=== PATIENT | male | born 1935 | race Caucasian/White ===

== ENCOUNTER 2016-05-25 07:33 | Outpatient (CLI) | payer MEDICARE ==
[2016-05-25 09:28] LABS: #Eosinphils 0.2 thou/uL (0.0-0.7); #Lymphocytes 1.2 thou/uL (1.20-3.40); #Monocytes 0.7 thou/uL (0.11-0.59); #Neutrophils 3.8 thou/uL (1.40-6.50); %Basophils 0.6 % (0.0-1.0); %Eosinophils 4.1 % (0.0-10.0); %Lymphocytes 20.5 % (21.0-51.0); %Monocytes 11.3 % (0.0-10.0); Hematocrit 39.6 % (42.0-52.0); Red Blood Cell (RBC) Count 4.17 mill/uL (4.70-6.10); White Blood Cell (WBC) Count 5.9 thou/uL (4.8-10.8)
[2016-05-25 09:42] LABS: ALT (SGPT) 17 U/L (0-55); AST (SGOT) 19 U/L (5-34); Alkaline Phosphatase 98 U/L (40-150); Anion Gap 14 mmol/L (10-20); BUN (Urea Nitrogen) 22 mg/dL (8.4-25.7); Bilirubin, Total 0.6 mg/dL (0.2-1.2); Calc. Creatinine Clearance 0 mL/min (70-130); Calcium 8.9 mg/dL (7.8-10.44); Carbon Dioxide 27 mmol/L (23-31); Chloride 108 mmol/L (98-107); Estimated GFR-MDRD 61; Globulin 2.6 g/dL (2.4-3.5); LDL Cholesterol, Calculated 115 mg/dL; Protein, Total 6.1 g/dL (5.8-8.1)
[2016-05-25 09:44] LABS: Hemoglobin A1c 5.4 % (4.0-6.0)
== END 2016-05-25 07:34 | disposition home or self-care (01) ==
LOC: NAV LABSP 07:33
PROVIDERS: ATTEND Family Medicine
DX: E11.9 Type 2 diabetes mellitus without complications (principal); M62.59 Muscle wasting and atrophy, not elsewhere classified, multiple sites
CPT/HCPCS: 36415; 80053; 80061; 83036; 85025

== ENCOUNTER 2016-06-21 08:19 | Outpatient (CLI) | payer MEDICARE | END 2016-06-21 08:20 | disposition home or self-care (01) | LOC: NAV LABSP 08:19 | PROVIDERS: ATTEND Family Medicine | DX: E11.9 Type 2 diabetes mellitus without complications (principal); I10 Essential (primary) hypertension | CPT/HCPCS: 36415; 82248; 84443 ==

== ENCOUNTER 2016-07-13 08:14 | Outpatient (CLI) | payer MEDICARE, OTHER ==
[2016-07-13 12:01] LABS: Bilirubin Negative (Negative); Blood, Urine Negative (Negative); Clarity Clear (Clear); Glucose, Urine (Dipstick) Negative (Negative); Leukocyte Negative (Negative); Nitrite Negative (Negative); Protein, Urine (Dipstick) Negative (Neg-Trace); Specific Gravity, Urine 1.015 (1.005-1.030); Urobilinogen 0.2 mg/dL (0.2-1.0); pH, Urine 6.5 (5.0-9.0)
== END 2016-07-13 08:15 | disposition home or self-care (01) ==
LOC: NAV LABSP 08:14
PROVIDERS: ATTEND Family Medicine
DX: Z12.5 Encounter for screening for malignant neoplasm of prostate (principal); R39.198 Other difficulties with micturition
CPT/HCPCS: 36415; 81003; 87086; G0103

== ENCOUNTER 2016-08-25 16:13 | Outpatient (CLI) | payer MEDICARE, MEDICAID ==
[2016-08-25 17:57] LABS: ALT (SGPT) 6 U/L (8-55); AST (SGOT) 24 U/L (5-34); Albumin 3.5 g/dL (3.4-4.8); Alkaline Phosphatase 106 U/L (40-150); Anion Gap 16 mmol/L (10-20); BUN (Urea Nitrogen) 29 mg/dL (8.4-25.7); Bilirubin, Total 0.7 mg/dL (0.2-1.2); Calc. Creatinine Clearance 0 mL/min (70-130); Calcium 8.5 mg/dL (7.8-10.44); Carbon Dioxide 22 mmol/L (23-31); Chloride 110 mmol/L (98-107); Estimated GFR-MDRD 65; Globulin 2.7 g/dL (2.4-3.5); Glucose 89 mg/dL (83-110); Potassium 3.8 mmol/L (3.5-5.1); Protein, Total 6.2 g/dL (5.8-8.1); Sodium 144 mmol/L (136-145)
[2016-08-25 17:58] LABS: Hemoglobin 12.7 g/dL (14.0-18.0); Mean Corpuscular HGB CONC 32.5 g/dL (32.0-36.0); Mean Corpuscular Hemoglobin 30.7 pg (27.0-31.0); Mean Corpuscular Volume 94.2 fl (80.0-94.0); Mean Platelet Volume 7.9 fL (7.4-10.4); Platelet Count 153 thou/uL (130-400); RBC Distribution Width 11.9 % (11.5-14.5); Red Blood Cell (RBC) Count 4.16 mill/uL (4.70-6.10); White Blood Cell (WBC) Count 7.7 thou/uL (4.8-10.8)
[2016-08-25 18:10] LABS: Band 1 % (5-11); Eosinophils 1 % (0-10); Lymphocytes 25 % (21-51); MDiff Complete? YES; Monocytes 3 % (0-10); Neutrophil 70 % (42-75); PLT Morphology Comment Appears Adequate; RBC Morphology Normal
[2016-08-25 18:47] LABS: Bilirubin Negative (Negative); Blood, Urine Negative (Negative); Clarity Clear (Clear); Glucose, Urine (Dipstick) Negative (Negative); Leukocyte Negative (Negative); Nitrite Negative (Negative); Protein, Urine (Dipstick) Negative (Neg-Trace); Specific Gravity, Urine 1.025 (1.005-1.030); Urobilinogen 0.2 mg/dL (0.2-1.0); pH, Urine 5.5 (5.0-9.0)
[2016-08-25 18:59] LABS: Bacteria/HPF None Seen HPF (None Seen); RBC/HPF None Seen HPF (0-3); Squamous Epithelial None Seen HPF (0-3); WBC/HPF None Seen HPF (0-3)
== END 2016-08-25 16:14 | disposition home or self-care (01) ==
LOC: NAV LABSP 16:13
PROVIDERS: ATTEND Family Medicine
DX: M62.81 Muscle weakness (generalized) (principal)
CPT/HCPCS: 36415; 80053; 81001; 85025; 87086

== ENCOUNTER 2016-09-05 08:25 | Outpatient (CLI) | payer MEDICARE, OTHER ==
[2016-09-05 09:27] LABS: ALT (SGPT) 23 U/L (8-55); AST (SGOT) 41 U/L (5-34); Albumin 2.9 g/dL (3.4-4.8); Alkaline Phosphatase 173 U/L (40-150); Anion Gap 15 mmol/L (10-20); BUN (Urea Nitrogen) 18 mg/dL (8.4-25.7); Bilirubin, Direct 0.2 mg/dL (0.1-0.3); Bilirubin, Total 0.4 mg/dL (0.2-1.2); Calc. Creatinine Clearance 0 mL/min (70-130); Calcium 8.3 mg/dL (7.8-10.44); Carbon Dioxide 25 mmol/L (23-31); Cardiac Risk 8.6 (Less than 4.5); Chloride 107 mmol/L (98-107); Cholesterol 155 mg/dl (< 200 Desired); Estimated GFR-MDRD 86; Globulin 2.8 g/dL (2.4-3.5); Glucose 89 mg/dL (83-110); HDL Cholesterol 18 mg/dL (>60 Neg Risk); LDL Cholesterol, Calculated 107 mg/dL; Protein, Total 5.7 g/dL (5.8-8.1); Sodium 143 mmol/L (136-145); Triglycerides 152 mg/dL (Less than 150)
[2016-09-05 09:33] LABS: #Basophils 0.1 thou/uL (0.0-0.2); #Eosinphils 0.4 thou/uL (0.0-0.7); #Lymphocytes 1.9 thou/uL (1.20-3.40); #Monocytes 1.2 thou/uL (0.11-0.59); #Neutrophils 6.2 thou/uL (1.40-6.50); %Basophils 0.7 % (0.0-1.0); %Eosinophils 4.1 % (0.0-10.0); %Lymphocytes 19.6 % (21.0-51.0); %Monocytes 11.9 % (0.0-10.0); %Neutrophils 63.8 % (42.0-75.0); Hemoglobin 12.1 g/dL (14.0-18.0); Mean Corpuscular HGB CONC 31.2 g/dL (32.0-36.0); Mean Corpuscular Hemoglobin 29.5 pg (27.0-31.0); Mean Corpuscular Volume 94.6 fl (80.0-94.0); Mean Platelet Volume 6.7 fL (7.4-10.4); Platelet Count 228 thou/uL (130-400); RBC Distribution Width 11.8 % (11.5-14.5); White Blood Cell (WBC) Count 9.7 thou/uL (4.8-10.8)
[2016-09-05 09:49] LABS: Hemoglobin A1c 5.2 % (4.0-6.0)
== END 2016-09-05 08:26 | disposition home or self-care (01) ==
LOC: NAV LABSP 08:25
PROVIDERS: ATTEND Family Medicine
DX: E11.9 Type 2 diabetes mellitus without complications (principal); I10 Essential (primary) hypertension
CPT/HCPCS: 36415; 80053; 80061; 82248; 83036; 84443; 85025

== ENCOUNTER 2016-10-26 07:42 | Outpatient (CLI) | payer MEDICARE, MEDICAID ==
[2016-10-26 08:46] LABS: #Eosinphils 0.3 thou/uL (0.0-0.7); #Lymphocytes 1.6 thou/uL (1.20-3.40); #Monocytes 0.7 thou/uL (0.11-0.59); #Neutrophils 3.6 thou/uL (1.40-6.50); %Basophils 0.5 % (0.0-1.0); %Eosinophils 4.4 % (0.0-10.0); %Lymphocytes 26.1 % (21.0-51.0); %Monocytes 10.6 % (0.0-10.0); %Neutrophils 58.3 % (42.0-75.0); Hemoglobin 11.8 g/dL (14.0-18.0); Mean Corpuscular HGB CONC 32.4 g/dL (32.0-36.0); Mean Corpuscular Hemoglobin 30.3 pg (27.0-31.0); Mean Corpuscular Volume 93.5 fl (80.0-94.0); Mean Platelet Volume 7.5 fL (7.4-10.4); Platelet Count 161 thou/uL (130-400); RBC Distribution Width 12.1 % (11.5-14.5); Red Blood Cell (RBC) Count 3.89 mill/uL (4.70-6.10); White Blood Cell (WBC) Count 6.2 thou/uL (4.8-10.8)
== END 2016-10-26 07:43 | disposition home or self-care (01) ==
LOC: NAV LABSP 07:42
PROVIDERS: ATTEND Family Medicine
DX: M25.561 Pain in right knee (principal); R60.9 Edema, unspecified
CPT/HCPCS: 36415; 85025

== ENCOUNTER 2016-11-11 07:18 | Outpatient (CLI) | payer MEDICARE, MEDICAID ==
[2016-11-11 07:35] LABS: Bilirubin Negative (Negative); Blood, Urine Small (Negative); Clarity Slightly Cloudy (Clear); Glucose, Urine (Dipstick) Negative (Negative); Leukocyte Large (Negative); Nitrite Positive (Negative); Protein, Urine (Dipstick) 100 mg/dL (Neg-Trace)
[2016-11-11 07:40] LABS: pH, Urine Greater/Equal 9.0 (5.0-9.0)
[2016-11-11 07:41] LABS: Bacteria/HPF 4+ HPF (None Seen); Crystals/HPF 3+ TRIPLE PHOS HPF (Negative); Squamous Epithelial 0-3 HPF (0-3); WBC/HPF 21-50 HPF (0-3)
== END 2016-11-11 07:19 | disposition home or self-care (01) ==
LOC: NAV LABSP 07:18
PROVIDERS: ATTEND Family Medicine
DX: R41.82 Altered mental status, unspecified (principal)
CPT/HCPCS: 81003; 81015; 87077; 87086; 87186

== ENCOUNTER 2016-12-13 10:11 | Outpatient (CLI) | payer MEDICARE, OTHER ==
[2016-12-13 11:54] LABS: #Eosinphils 0.4 thou/uL (0.0-0.7); #Lymphocytes 1.5 thou/uL (1.20-3.40); #Monocytes 0.8 thou/uL (0.11-0.59); #Neutrophils 4.8 thou/uL (1.40-6.50); %Basophils 0.6 % (0.0-1.0); %Eosinophils 5.3 % (0.0-10.0); %Lymphocytes 20.3 % (21.0-51.0); %Monocytes 10.3 % (0.0-10.0); %Neutrophils 63.6 % (42.0-75.0); Mean Corpuscular HGB CONC 32.5 g/dL (32.0-36.0); Mean Corpuscular Hemoglobin 30.2 pg (27.0-31.0); Mean Corpuscular Volume 92.9 fl (80.0-94.0); Platelet Count 162 thou/uL (130-400); RBC Distribution Width 12.1 % (11.5-14.5); Red Blood Cell (RBC) Count 3.97 mill/uL (4.70-6.10); White Blood Cell (WBC) Count 7.5 thou/uL (4.8-10.8)
[2016-12-13 12:06] LABS: ALT (SGPT) 12 U/L (8-55); AST (SGOT) 13 U/L (5-34); Albumin 3.1 g/dL (3.4-4.8); Alkaline Phosphatase 92 U/L (40-150); Anion Gap 11 mmol/L (10-20); BUN (Urea Nitrogen) 26 mg/dL (8.4-25.7); Bilirubin, Direct 0.2 mg/dL (0.1-0.3); Bilirubin, Total 0.4 mg/dL (0.2-1.2); Calc. Creatinine Clearance 0 mL/min (70-130); Calcium 8.2 mg/dL (7.8-10.44); Carbon Dioxide 24 mmol/L (23-31); Cardiac Risk 6.6 (Less than 4.5); Chloride 112 mmol/L (98-107); Cholesterol 138 mg/dl (< 200 Desired); Estimated GFR-MDRD 77; Globulin 2.3 g/dL (2.4-3.5); Glucose 87 mg/dL (83-110); HDL Cholesterol 21 mg/dL (>60 Neg Risk); LDL Cholesterol, Calculated 101 mg/dL; Protein, Total 5.4 g/dL (5.8-8.1); Sodium 143 mmol/L (136-145); Triglycerides 78 mg/dL (Less than 150)
[2016-12-13 12:35] LABS: Hemoglobin A1c 5.5 % (4.0-6.0)
== END 2016-12-13 10:12 | disposition home or self-care (01) ==
LOC: NAV LABSP 10:11
PROVIDERS: ATTEND Family Medicine
DX: E11.9 Type 2 diabetes mellitus without complications (principal); I10 Essential (primary) hypertension
CPT/HCPCS: 36415; 80053; 80061; 82248; 83036; 84443; 85025

== ENCOUNTER 2017-02-21 13:43 | Emergency (ER) | payer MEDICARE, OTHER ==
[~2017-02-21 13:43] MED LIST: EPINEPHrine 1 MG/ML AMP ONE
[2017-02-21] MEDS ORDERED: Norepinephrine 8 MG/0.9% NS 250 ML ONE (14:05)
[2017-02-21 14:10] LABS: INR-International Normal Ratio 1.2
[2017-02-21 14:10] LABS: Hemoglobin 15.8 g/dL (14.0-18.0); Mean Corpuscular HGB CONC 30.8 g/dL (32.0-36.0); Mean Corpuscular Hemoglobin 30.9 pg (27.0-31.0); Mean Platelet Volume 8.5 fL (7.4-10.4); Platelet Count 142 thou/uL (130-400); RBC Distribution Width 13.1 % (11.5-14.5); Red Blood Cell (RBC) Count 5.13 mill/uL (4.70-6.10); White Blood Cell (WBC) Count 21.4 thou/uL (4.8-10.8)
[2017-02-21 14:11] LABS: PTT 39.8 SEC (22.9-36.1)
[2017-02-21 14:15] LABS: CKMB 4.1 ng/mL (0-6.6); Troponin I 0.085 ng/mL (< 0.028)
[2017-02-21 14:16] LABS: ALT (SGPT) 9 U/L (8-55); AST (SGOT) 48 U/L (5-34); Alkaline Phosphatase 110 U/L (40-150); Anion Gap 24 mmol/L (10-20); BUN (Urea Nitrogen) 43 mg/dL (8.4-25.7); Bilirubin, Total 0.5 mg/dL (0.2-1.2); Calc. Creatinine Clearance 0 mL/min (70-130); Calcium 9.4 mg/dL (7.8-10.44); Carbon Dioxide 14 mmol/L (23-31); Chloride 108 mmol/L (98-107); Estimated GFR-MDRD 15; Globulin 3.9 g/dL (2.4-3.5); Glucose 246 mg/dL (83-110); Potassium 4.2 mmol/L (3.5-5.1); Protein, Total 7.9 g/dL (5.8-8.1); Sodium 142 mmol/L (136-145)
[2017-02-21 14:20] LABS: Anisocytosis SLIGHT = 6-15 cells (100X) (0-5/hpf); Lymphocytes 24 % (21-51); MDiff Complete? YES; Macrocytosis SLIGHT = 6-15 cells (100X) (0-5/hpf); Monocytes 9 % (0-10); Neutrophil 67 % (42-75); PLT Morphology Comment Appears Adequate
[2017-02-21] MEDS ORDERED: Midazolam HCl 2 mg/2 ml Vial ONE (14:51)
--- NOTE | 2017-02-21 15:29 | RAD ---
1 VIEW CHEST: Date: 02/21/17 HISTORY: Status post cardiac arrest. Intubated patient. Central line placement. COMPARISON: 11/22/15. FINDINGS: Portable supine chest submitted for interpretation. Limited evaluation due to technique. Heart is enl arged. Diminished lung volumes. Questionable interstitial opacities. No obvious pleural effusion or d efinite pneumothorax on this supine projection. Endotracheal tube appears to be just beyond the level of the thoracic inlet. Central venous catheter is not appreciated. IMPRESSION: 1. ET tube as above. 2. Limited evaluation due to portable technique and supine position. 3. Central venous catheter is not appreciated. Correlate clinically. POS: [facility]
== END 2017-02-21 15:20 | disposition short-term general hospital (02) ==
LOC: NAV ERS 13:43
DX: I46.9 Cardiac arrest, cause unspecified (principal); E11.9 Type 2 diabetes mellitus without complications; G20 Parkinson's disease; F41.9 Anxiety disorder, unspecified; K21.9 Gastro-esophageal reflux disease without esophagitis; Z79.899 Other long term (current) drug therapy
CPT/HCPCS: 31500; 36415; 36556; 71010; 80053; 82553; 83605; 83880; 84484; 85025; 85610; 85730; 92953; 93005; 96365; 96375; 99292; J0171; J0282; J2250